=== PATIENT | female | born 2000 | race Caucasian/White ===

== ENCOUNTER 2024-03-25 05:41 | Emergency (ER) | payer OTHER, SELFPAY ==
[2024-03-25 05:49] VITALS: BP 141/74; PULSE 89; RESP 18; TEMP 36.9; O2SAT 99; BMI 35.6
--- NOTE | 2024-03-25 06:04 | ED.GENADULT ---
HPI - General Adult General Chief complaint: Abdominal Pain Stated complaint: Abdominal pain, vomiting Time Seen by Provider: 03/25/24 06:04 History of Present Illness HPI narrative: CC: Nausea/ Vomiting, Abdominal Pain pt. woke up around 0100 and 0500 with emesis. upper abdominal pain. denies fevers , diarrhea. last bm 03/25/24 --normal. denies urinary symptoms. 23-year-old woman presenting to the emergency department with complaint of upper abdominal pain and vomiting. Denies particular food intolerance is. No ill exposures. No fever. No hematemesis. 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 Not had diarrhea. No constipation. Feels puffy somewhat on that right side and finds it painful to sleep on her back or onto her right side. Mother who accompanies her here today apparently did have a cholecystectomy. Related Data Home Medications ?Medication ?Instructions ?Recorded ?Confirmed methotrexate sodium 2.5 mg tablet 2.5 mg PO DAILY 03/25/24 03/25/24 Allergies Allergy/AdvReac Type Severity Reaction Status Date / Time No Known Drug Allergies Allergy Verified 03/25/24 05:50 Review of Systems Status of ROS: Reports: 6 or more systems reviewed and unremarkable except as noted in History and below [facility] Medical History Rheumatoid arthritis ?M06.9 - Rheumatoid arthritis, unspecified (ICD-10) Surgical History No significant past surgical history Social History Smoking Status: Never smoker Second hand tobacco smoke exposure: No How often do you have a drink containing alcohol: never AUDIT-C Alcohol total score: 0 Non-prescribed substance use: denies use Exam Narrative: Exam Narrative: Very pleasant. Clearly uncomfortable. Has just finished vomiting and ice or watering sounds congested in the nasopharynx. Breathing easily. Lungs appear to be clear. Heart in regular rate and rhythm. Abdomen is exquisitely tender in the right upper quadrant into the epigastrium. Otherwise soft. Does not have peritoneal signs otherwise. Moving all extremities without difficulty. She is well-perfused. Const: Vital Signs, click to edit/add: Vital Signs - 24 hr 03/25/24 05:49 03/25/24 06:16 03/25/24 06:25 Temperature 98.4 F 98.4 F Pulse Rate [Right Pulse Oximeter] 89 Respiratory Rate 18 Blood Pressure [Ri ght Upper Arm] 141/74 H Pulse Oximetry 99 99 Oxygen Delivery Me thod Room Air Documenting provider has reviewed patient's vital signs: yes Course Vital Signs Vital signs: Initial Vital Signs Temperature 98.4 F 03/25/24 05:49 Temperature Source Temporal Artery Scan 03/25/24 05:49 Pulse Rate 89 03/25/24 05:49 Respiratory Rate 18 03/25/24 05:49 Blood Pressure 141/74 H 03/25/24 05:49 Blood Pressure Mean 96 03/25/24 05:49 Blood Pressure Position Sitting 03/25/24 05:49 Pulse Oximetry 99 03/25/24 05:49 Oxygen Delivery Method Room Air 03/25/24 05:49 Vital Signs Temperature 98.4 F 03/25/24 05:49 Pulse Rate 89 03/25/24 05:49 Respiratory Rate 18 03/25/24 05:49 Blood Pressure 141/74 H 03/25/24 05:49 Pulse Oximetry 99 03/25/24 05:49 Oxygen Delivery Method Room Air 03/25/24 05:49 Temperature 98.4 F 03/25/24 06:16 Pulse Rate 89 03/25/24 05:49 Respiratory Rate 18 03/25/24 05:49 Blood Pressure 141/74 H 03/25/24 05:49 Pulse Oximetry 99 03/25/24 06:25 Oxygen Delivery Method Room Air 03/25/24 05:49 Medications Administered Medications: Discontinued Medications Generic Name Dose Route Start Last Admin Trade Name Freq PRN Reason Stop Dose Admin Sodium Chloride 1,000 mls @ 1,000 mls/hr 03/25/24 06:08 03/25/24 07:48 0.9 % Sodium Chloride 1000 Ml IV 03/25/24 07:07 Infused .Q1H ONE Infusion Ketorolac Tromethamine 30 mg 03/25/24 06:08 03/25/24 06:16 Ketorolac 30 Mg/Ml Inj IVP 03/25/24 06:09 30 mg ONCE ONE Administration Morphine Sulfate 4 mg 03/25/24 06:08 03/25/24 06:22 Morphine 4 Mg/Ml Inj IVP 03/25/24 06:09 4 mg ONCE ONE Administration Ondansetron HCl 4 mg 03/25/24 06:08 03/25/24 06:15 Ondansetron 2 Mg/Ml Inj IVP 03/25/24 06:09 4 mg ONCE ONE Administration Medical Decision Making MDM Narrative Medical decision making narrative: Considering community prevalence differential does include COVID. Could be other infectious gastritis. Will check labs also did indicate potential cholecystitis or biliary colic with cholelithiasis. Possible pancreatitis. IV is initiated. Normal saline and after discussion of options initial dosing with morphine and ketorolac and Zofran. Labs returned with white count elevated at 12.5, somewhat suppressed lymphocytic%, normal transaminases and lipase. On reassessment is still fairly experiencing good deal of pain in areas as above less perhaps in the epigastrium I think. She does not feel she needs more pain medication however. Would also add COVID swab for evaluation; this was neglected the 1st time. Requesting limited abdominal ultrasound to evaluate gallbladder/liver in particular. Discussed findings with neuro psych sales specialist. Stones, sludge, normal gallbladder wall, presence of hydrops and dilated common bile duct are noted. Radiology over-read as below Study:?US-Abdomen ruq-03/25/2024 8:12:44 AM Ordering Physician:?Lyric Hernandez Final Report: INDICATION: Right upper quadrant pain and vomiting TECHNIQUE: Ultrasound abdomen limited. Sonographic images of the right upper quadrant were obtained using sherman-scale and color Doppler images. COMPARISON: None FINDINGS: Liver: Normal in size and echotexture. No masses. No intrahepatic biliary dilatation. Normal flow direction in the portal vein. Gallbladder: Distended. Several stones in the gallbladder. Normal wall thickness. No pericholecystic fluid. Positive sonographic Loza`s sign. Common bile duct: Dilated at 8 mm in diameter. Stone visualized within the distal common bile duct. Pancreas: Normal where visible. Right kidney: Normal in size. Normal echotexture and cortex. No suspicious masses, stones, or hydronephrosis. Vasculature: Proximal abdominal aorta and IVC are normal. IMPRESSION: 1. Choledocholithiasis with dilated common bile duct and distended gallbladder indicating obstruction. Will discuss these findings with general surgery. Given visibility of stone in duct is tempting to retrieve intraoperatively but recommendations are for ERCP retrieval. Will look for accommodations elsewhere. Accepted to [facility] in [place] on up to 8 hour wait. They would prefer to go by private car. She patient discharge plan for further discussion Lab Data Lab results reviewed: Yes I reviewed the patient's lab results Labs: Lab Results 03/25/24 03/25/24 Range/Units 06:15 07:15 WBC 12.46 H (4.50-11.00) K/uL RBC 4.61 (4.00-5.20) m/uL Hgb 13.3 (12.0-16.0) gm/dL Hct 40.6 (33.0-51.0) % MCV 88 (80-100) fL MCH 29 (26-34) pg MCHC 33 (32-36) gm/dL RDW Coeff of Raoul 11.8 (11.5-15.5) % Plt Count 332 (140-440) K/uL Neut % (Auto) 75.8 H (42.0-72.0) % Lymph % (Auto) 18.0 L (20-44) % Sabine % (Auto) 4.3 (0.0-11.0) % Eos % (Auto) 0.8 (0.0-7.0) % Baso % (Auto) 0.3 (0.0-3.0) % Neut # (Auto) 9.40 H (1.7-7.0) K/uL Lymph # (Auto) 2.20 (0.90-2.90) K/uL Sabine # (Auto) 0.50 (0.00-0.90) K/UL Eos # (Auto) 0.10 (0.00-0.50) K/uL Baso # (Auto) 0.00 (0.00-0.30) K/uL Abs Immat Gran (auto) 0.10 (0.00-0.30) K/uL Imm/Tot Granulo (auto) 0.8 % Sodium 137 (135-149) mmol/L Potassium 4.1 (3.6-5.1) mmol/L Chloride 103 (96-114) mmol/L Carbon Dioxide 23 (20-32) mmol/L Anion Gap 11 (7-15) mEq/L BUN 14 (5-24) mg/dL Creatinine 0.6 (0.5-1.5) mg/dL Estimated Creat Clear 119.60 Estimated GFR 128 ml/min Glucose 124 H (60-115) mg/dL Calcium 9.2 (8.4-10.6) mg/dL Total Bilirubin 0.5 (0.1-1.5) mg/dL Direct Bilirubin 0.3 (0.0-0.5) mg/dL AST 19 (12-35) U/L ALT 13 (4-35) U/L Alkaline Phosphatase 87 (40-150) U/L C-Reactive Protein 0.8 (0.5-1.0) mg/dL Total Protein 8.1 (6.0-8.3) g/dL Albumin 4.8 (3.3-5.0) g/dL Lipase 74 (23-300) U/L SARS-CoV-2 (PCR) Negative SARS-CoV-2 (Negative) Influenza Type A (PCR) Negative PCR FLU A (Negative) Influenza Type B (PCR) Negative PCR FLU B (Negative) Discharge Plan Discharge Clinical Impression: Choledocholithiasis Patient Disposition: Home w/ Parent or Adult Condition: Stable Additional Instructions: Please go to [facility] in [place] where they are expecting you. Dr. Galvez is the accepting fire protection fabricator. Prescriptions: No Action methotrexate sodium 2.5 mg tablet 2.5 mg PO DAILY Follow Up/Referrals: Provider,Not a Local [Primary Care Provider] - Stand Alone Forms: [employer] Info Instructions
[2024-03-25] MEDS: ONDANSETRON 2 MG/ML inj 4 MG IVP (06:15)
[2024-03-25] MEDS: 0.9 % SODIUM CHLORIDE 1000 ml 1,000 ML IV (06:15)
[2024-03-25 06:16] VITALS: TEMP 36.9
[2024-03-25] MEDS: KETOROLAC 30 MG/ML inj IVP (06:16)
[2024-03-25] MEDS: MORPHINE 4 MG/ML INJ IVP (06:22)
[2024-03-25 06:23] LABS: Basophils Percent Auto 0.3 % (0.0-3.0); Eosinophils Percent Auto 0.8 % (0.0-7.0); Hematocrit 40.6 % (33.0-51.0); Hemoglobin* 13.3 gm/dL (12.0-16.0); Immature Granulocytes Pct Auto 0.8 %; Mean Corpuscular HGB Conc 33 gm/dL (32-36); Mean Corpuscular Hemoglobin 29 pg (26-34); Mean Corpuscular Volume 88 fL (80-100); Monocytes Percent Auto 4.3 % (0.0-11.0); Neutrophils Percent Auto 75.8 % (42.0-72.0); Platelet Count* 332 K/uL (140-440); RDW Coefficient of Variation % 11.8 % (11.5-15.5); Red Blood Count 4.61 m/uL (4.00-5.20); White Blood Count* 12.46 K/uL (4.50-11.00)
[2024-03-25 06:25] VITALS: O2SAT 99
[2024-03-25 06:37] LABS: Slide Review Reflex No
[2024-03-25 06:52] LABS: Albumin* 4.8 g/dL (3.3-5.0); Chloride* 103 mmol/L (96-114); Sodium* 137 mmol/L (135-149)
[2024-03-25 06:53] LABS: Potassium* 4.1 mmol/L (3.6-5.1)
[2024-03-25 06:55] LABS: Creatinine* 0.6 mg/dL (0.5-1.5); Estimated Glomerular Filt Rate 128 ml/min
[2024-03-25 06:56] LABS: Alanine Aminotransferase* 13 U/L (4-35); Alkaline Phosphatase* 87 U/L (40-150); Anion Gap 11 mEq/L (7-15); Aspartate Amino Transferase* 19 U/L (12-35); Bilirubin Direct* 0.3 mg/dL (0.0-0.5); Bilirubin Total* 0.5 mg/dL (0.1-1.5); Blood Urea Nitrogen* 14 mg/dL (5-24); Calcium* 9.2 mg/dL (8.4-10.6); Carbon Dioxide* 23 mmol/L (20-32); Glucose* 124 mg/dL (60-115); Lipase* 74 U/L (23-300); Total Protein* 8.1 g/dL (6.0-8.3)
[2024-03-25 06:59] LABS: C Reactive Protein* 0.8 mg/dL (0.5-1.0)
--- NOTE | 2024-03-25 07:10 | CRLHL7_ITS ---
For Patients: As a result of the Century Cures Act, medical imaging exams and procedure reports are released immediately into your electronic medical record. You may view this report before your referring provider. If you have questions, please contact your health care provider. INDICATION: Right upper quadrant pain and vomiting TECHNIQUE: Ultrasound abdomen limited. Sonographic images of the right upper quadrant were obtained using sherman-scale and color Doppler images. COMPARISON: None FINDINGS: Liver: Normal in size and echotexture. No masses. No intrahepatic biliary dilatation. Normal flow direction in the portal vein. Gallbladder: Distended. Several stones in the gallbladder. Normal wall thickness. No pericholecystic fluid. Positive sonographic Loza`s sign. Common bile duct: Dilated at 8 mm in diameter. Stone visualized within the distal common bile duct. Pancreas: Normal where visible. Right kidney: Normal in size. Normal echotexture and cortex. No suspicious masses, stones, or hydronephrosis. Vasculature: Proximal abdominal aorta and IVC are normal. IMPRESSION: 1. Choledocholithiasis with dilated common bile duct and distended gallbladder indicating obstruction. Dictated by Keith Bryant MD @ 03/25/2024 8:17:46 AM (Electronically Signed)
[2024-03-25 08:01] LABS: PCR FLU A Negative PCR FLU A (Negative); PCR FLU B Negative PCR FLU B (Negative); SARS PCR* Negative SARS-CoV-2 (Negative)
[2024-03-25 10:58] VITALS: BP 126/68; PULSE 70; RESP 18; O2SAT 98
== END 2024-03-25 11:26 | disposition home or self-care (01) ==
PROVIDERS: Emergency Provider Family Medicine
DX: K80.80 Other cholelithiasis without obstruction (principal)
CPT/HCPCS: 36415; 76705; 80048; 80076; 83690; 85025; 86140; 87631; 94761; 96374; 96375; 99284; J1885; J2270; J2405; J7030